=== PATIENT | male | born 1985 | race African-American/Black ===

== ENCOUNTER 2020-08-10 22:25 | Emergency (ER) | payer SELFPAY ==
[2020-08-10 22:46] LABS: #Basophils 0.1 thou/uL (0.0-0.2); #Eosinphils 0.5 thou/uL (0.0-0.7); #Lymphocytes 3.5 thou/uL (1.20-3.40); #Monocytes 0.6 thou/uL (0.11-0.59); #Neutrophils 4.3 thou/uL (1.40-6.50); %Basophils 0.8 % (0.0-1.0); %Eosinophils 5.6 % (0.0-10.0); %Monocytes 6.7 % (0.0-10.0); %Neutrophils 47.9 % (42.0-75.0); Hemoglobin 15.3 g/dL (14.0-18.0); Mean Corpuscular HGB CONC 33.3 g/dL (32.0-36.0); Mean Corpuscular Volume 84.3 fL (78.0-98.0); Mean Platelet Volume 7.1 fL (7.4-10.4); Platelet Count 314 thou/uL (130-400); RBC Distribution Width 12.4 % (11.5-14.5); Red Blood Cell (RBC) Count 5.47 mill/uL (4.70-6.10)
[2020-08-10 23:09] LABS: ALT (SGPT) 49 U/L (8-55); AST (SGOT) 22 U/L (5-34); Albumin 4.5 g/dL (3.5-5.0); Alkaline Phosphatase 63 U/L (40-110); Anion Gap 16 mmol/L (10-20); BUN (Urea Nitrogen) 13 mg/dL (8.9-20.6); Bilirubin, Total 0.8 mg/dL (0.2-1.2); Calc. Creatinine Clearance 0 mL/min (70-130); Calcium 9.3 mg/dL (7.8-10.44); Carbon Dioxide 25 mmol/L (22-29); Chloride 105 mmol/L (98-107); Estimated GFR-MDRD 73; Globulin 3.5 g/dL (2.4-3.5); Glucose 141 mg/dL (70-105); Potassium 3.6 mmol/L (3.5-5.1); Sodium 142 mmol/L (136-145)
[2020-08-10] MEDS ORDERED: Metoprolol Tartrate 25 MG TAB ONE ×2 (23:46→23:47)
[2020-08-10] MEDS ORDERED: Aspirin Chewable 81 MG TAB ONE (23:46)
--- NOTE | 2020-08-11 07:08 | RAD ---
SINGLE VIEW CHEST: Date: 08/10/2020 COMPARISON: 10/15/2014. HISTORY: Chest pain, while eating, in the right and left chest with numbness in the left arm and associated sh ortness of breath. FINDINGS: Single view of the chest shows a normal sized cardiomediastinal silhouette. There is no evidence of c onsolidation, mass, or pleural effusion. The bones are unremarkable. IMPRESSION: No evidence of acute cardiopulmonary disease. POS: [facility]
== END 2020-08-11 00:31 | disposition home or self-care (01) ==
LOC: ERS 22:25
DX: I10 Essential (primary) hypertension (principal); R07.9 Chest pain, unspecified
CPT/HCPCS: 36415; 71045; 80053; 83690; 84484; 85025; 85379; 93005

== ENCOUNTER 2020-08-21 20:47 | Emergency (ER) | payer SELFPAY ==
[2020-08-21] MEDS ORDERED: Lorazepam 1 MG TAB ONE (21:19)
--- NOTE | 2020-08-21 21:31 | RAD ---
Chest one view HISTORY: Chest pain. COMPARISON: 08/10/2020. FINDINGS: Cardiac silhouette and pulmonary vasculature are unremarkable. Mediastinum is midline. No confluent airspace consolidation or evidence of pneumothorax. IMPRESSION : No abnormalities are demonstrated.
--- NOTE | 2020-08-27 10:49 | EKG ---
Test Reason : CHEST TIGHTNESS Blood Pressure : / mmHG Vent. Rate : 093 BPM Atrial Rate : 093 BPM P-R Int : 122 ms QRS Dur : 082 ms QT Int : 346 ms P-R-T Axes : 040 030 270 degrees QTc Int : 430 ms Normal sinus rhythm T wave abnormality, consider inferolateral ischemia Abnormal ECG Confirmed by RADHA CASTAÑEDA, RICH Jeffrey ([id number]), staff editor DANI CHI ([id number]) on 08/27/2020 10:49:08 AM Referred By: Confirmed By:RICH GARCIA MD
== END 2020-08-21 23:06 | disposition home or self-care (01) ==
LOC: ERS 20:47
DX: I10 Essential (primary) hypertension (principal); F41.9 Anxiety disorder, unspecified; Z79.899 Other long term (current) drug therapy
CPT/HCPCS: 36415; 71045; 84484; 93005; 94760

== ENCOUNTER 2021-01-23 20:12 | Emergency (ER) | payer SELFPAY ==
[2021-01-23 20:41] LABS: #Lymphocytes 1.6 thou/uL (1.20-3.40); #Monocytes 0.9 thou/uL (0.11-0.59); #Neutrophils 4.5 thou/uL (1.40-6.50); %Basophils 0.2 % (0.0-1.0); %Eosinophils 0.1 % (0.0-10.0); %Lymphocytes 23.3 % (21.0-51.0); %Monocytes 12.9 % (0.0-10.0); %Neutrophils 63.5 % (42.0-75.0); Hemoglobin 17.3 g/dL (14.0-18.0); Mean Corpuscular HGB CONC 32.8 g/dL (32.0-36.0); Mean Corpuscular Hemoglobin 27.1 pg (27.0-31.0); Mean Corpuscular Volume 82.7 fL (78.0-98.0); Mean Platelet Volume 7.8 fL (7.4-10.4); Platelet Count 199 thou/uL (130-400); RBC Distribution Width 12.7 % (11.5-14.5); Red Blood Cell (RBC) Count 6.39 mill/uL (4.70-6.10)
[2021-01-23] MEDS ORDERED: Acetaminophen 500 MG TAB ONE (20:43)
[2021-01-23] MEDS ORDERED: Albuterol 200 PUFF (6.7GM INHALER) ONE (20:52)
[2021-01-23 21:02] LABS: ALT (SGPT) 147 U/L (8-55); AST (SGOT) 99 U/L (5-34); Albumin 4.7 g/dL (3.5-5.0); Alkaline Phosphatase 73 U/L (40-110); Anion Gap 20 mmol/L (10-20); BUN (Urea Nitrogen) 10 mg/dL (8.9-20.6); Bilirubin, Total 0.8 mg/dL (0.2-1.2); Calc. Creatinine Clearance 0 mL/min (70-130); Calcium 9.6 mg/dL (7.8-10.44); Carbon Dioxide 26 mmol/L (22-29); Chloride 91 mmol/L (98-107); Globulin 3.9 g/dL (2.4-3.5); Glucose 110 mg/dL (70-105); Potassium 3.6 mmol/L (3.5-5.1); Protein, Total 8.6 g/dL (6.0-8.3); Sodium 133 mmol/L (136-145)
== END 2021-01-23 21:23 | disposition home or self-care (01) ==
LOC: ERS 20:12
DX: U07.1 COVID-19 (principal); I10 Essential (primary) hypertension
CPT/HCPCS: 36415; 71045; 80053; 85025; 94760